=== PATIENT | female | born 1950 | race Caucasian/White ===

== ENCOUNTER 2017-08-18 07:51 | Outpatient (CLI) | payer MEDICARE, BC ==
--- NOTE | 2017-08-18 10:25 | ULT ---
PELVIC ULTRASOUND: Date: 08/18/17 COMPARISON: None. HISTORY: Pain. FINDINGS: The patient is status post bilateral oophorectomy and hysterectomy, per the patient. Imaging demonstrates no free fluid in the pelvis. Neither ovary is visualized. The uterus is not visualized. IMPRESSION: Postoperative changes as above. If symptoms persist, CT suggested. POS: FLORINDA
--- NOTE | 2017-08-18 10:35 | ULT ---
ABDOMINAL ULTRASOUND: Date: 08-18-17 Comparison: None. History: Abdominal pain. Technique: Multiplanar grayscale sonographic imaging of the abdomen provided. FINDINGS: Imaged pancreas is unremarkable. The distal body and tail are obscured by bowel gas. Imaged IVC and aorta appear within normal limits. There is a 2.4 x 1.6 cm cyst within the right lobe of the liver. Hepatic parenchyma is unremarkable o therwise. The motion picture camera operator reports a negative Bustamante's sign. CBD measures 3-4 mm, within normal limits . No gallbladder wall thickening or pericholecystic fluid. No gallstones are noted. Right kidney measures 9.4 cm in craniocaudal dimension and left kidney measures 10.2 cm in craniocau robert dimension. No renal mass, hydronephrosis, or stone on either side. Spleen is within normal limits , measuring up to 8.1 cm. IMPRESSION: No acute findings. POS: SARINA
== END 2017-08-18 07:52 | disposition home or self-care (01) ==
LOC: SCSULT 07:51
PROVIDERS: ATTEND Family Medicine
DX: R10.9 Unspecified abdominal pain (principal); Z90.722 Acquired absence of ovaries, bilateral; Z90.710 Acquired absence of both cervix and uterus
CPT/HCPCS: 76700; 76856

== ENCOUNTER 2018-11-16 08:49 | Outpatient (CLI) | payer MEDICARE, BC ==
--- NOTE | 2018-11-16 10:20 | MMO ---
Bilateral MAMMO Bilat Screen [facility]. CLINICAL HISTORY: Patient is 68 years old and is seen for screening. The patient has no family history of breast cancer. 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 VIEWS: The views performed were: bilateral craniocaudal with tomosynthesis and bilateral mediolateral oblique with tomosynthesis. FILMS COMPARED: The present examination has been compared to prior imaging studies performed at [facility] on 11/05/2014, 11/11/2015, 11/11/2016 and 11/15/2017. MAMMOGRAM FINDINGS: There are scattered fibroglandular densities. Finding 1: There are stable benign appearing calcifications seen in both breasts. Finding 2: There are stable post operative changes seen in the left breast. There are no suspicious masses, suspicious calcifications, or new areas of architectural distortion. IMPRESSION: THERE IS NO MAMMOGRAPHIC EVIDENCE OF MALIGNANCY. A ROUTINE FOLLOW-UP MAMMOGRAM IN 1 YEAR IS RECOMMENDED. THE RESULTS OF THIS EXAM WERE SENT TO THE PATIENT. ACR BI-RADS Category 2 - Benign finding MAMMOGRAPHY NOTE: 1. A negative mammogram report should not delay a biopsy if a dominant of clinically suspicious mass is present. 2. Approximately 10% to 15% of breast cancers are not detected by mammography. 3. Adenosis and dense breasts may obscure an underlying neoplasm. Reported by: JULISA MENDOZA MD Electonically Signed: [id number]
== END 2018-11-16 08:50 | disposition home or self-care (01) ==
LOC: BICMAMMO 08:49
PROVIDERS: ATTEND Internal Medicine Medical Oncology
DX: Z12.31 Encounter for screening mammogram for malignant neoplasm of breast (principal)
CPT/HCPCS: 77063; 77067

== ENCOUNTER 2021-11-24 10:01 | Outpatient (CLI) | payer MEDICARE, BC | END 2021-11-24 10:02 | disposition home or self-care (01) | LOC: BICMAMMO 10:01 | PROVIDERS: ATTEND Internal Medicine Medical Oncology | DX: Z12.31 Encounter for screening mammogram for malignant neoplasm of breast (principal); Z85.3 Personal history of malignant neoplasm of breast; Z98.890 Other specified postprocedural states | CPT/HCPCS: 77063; 77067 ==

== ENCOUNTER 2023-01-11 13:43 | Outpatient (CLI) | payer MEDICARE, BC | END 2023-01-11 13:44 | disposition home or self-care (01) | LOC: BICMAMMO 13:43 | PROVIDERS: ATTEND Internal Medicine Medical Oncology | DX: Z12.31 Encounter for screening mammogram for malignant neoplasm of breast (principal); Z85.3 Personal history of malignant neoplasm of breast; Z98.890 Other specified postprocedural states | CPT/HCPCS: 77063; 77067 ==

== ENCOUNTER 2024-01-24 08:59 | Outpatient (CLI) | payer MEDICARE, BC | END 2024-01-24 09:00 | disposition home or self-care (01) | LOC: BICMAMMO 08:59 | PROVIDERS: ATTEND Family Medicine | DX: Z12.31 Encounter for screening mammogram for malignant neoplasm of breast (principal); Z85.3 Personal history of malignant neoplasm of breast; Z98.890 Other specified postprocedural states | CPT/HCPCS: 77063; 77067 ==

== ENCOUNTER 2025-01-29 10:25 | Outpatient (CLI) | payer MEDICARE, BC | END 2025-01-29 10:26 | disposition home or self-care (01) | LOC: BICMAMMO 10:25 | PROVIDERS: ATTEND Family Medicine | DX: Z12.31 Encounter for screening mammogram for malignant neoplasm of breast (principal); Z85.3 Personal history of malignant neoplasm of breast; Z98.890 Other specified postprocedural states | CPT/HCPCS: 77063; 77067 ==